=== PATIENT | male | born 1990 | race Caucasian/White ===

== ENCOUNTER → 2020-03-17 | Outpatient (CLI) | payer OTHER ==
[~2020-03-17] MED LIST: AMOX500T2 PO; IBUP80TA PO
--- NOTE | 2020-03-17 13:44 | REPVR ---
PROCEDURE INFORMATION: Exam: CT Maxillofacial Without Contrast, Sinus Exam date and time: 03/17/2020 1:34 PM Age: 30 years old Clinical indication: Condition or disease; Other: Chronic pansiusitis TECHNIQUE: Imaging protocol: CT Maxillofacial without contrast. Focus on the sinuses. Radiation optimization: All CT scans at this facility use at least one of these dose optimization techniques: automated exposure control; mA and/or kV adjustment per patient size (includes targeted exams where dose is matched to clinical indication); or iterative reconstruction. COMPARISON: No relevant prior studies available. FINDINGS: Frontal sinuses: Normal. No air-fluid levels. Ethmoid air cells: Normal. No air-fluid levels. Sphenoid sinuses: Normal. No air-fluid levels. Maxillary sinuses: There is a mucous retention cyst along the floor of the right maxillary sinus. Nasal cavity/Septum: Unremarkable. Orbits: Orbits are normal. Globes are unremarkable. Bones/joints: Unremarkable. Soft tissues: Unremarkable. Dental: There are 2 large left periapical maxillary cysts. IMPRESSION: 1. Large left maxillary periapical cyst extend into the left maxillary sinus. Dental evaluation is recommended. 2. Mild of focal right maxillary sinus mucosal disease. Electronically signed by: Amparo Diaz On 03/17/2020 13:44:52 PM
== END ==
LOC: M RAD 13:11
PROVIDERS: ATTEND Specialist
DX: J32.4 Chronic pansinusitis (principal); K04.8 Radicular cyst

== ENCOUNTER 2020-04-04 06:21 | Day surgery (SDC) | payer OTHER ==
[~2020-04-04] VITALS: Ht 182.9 cm; Wt 70.9 kg
[~2020-04-04 06:21] MED LIST changes: +AMPICILLIN SOD/SULBACTAM SOD 3 GM in D5W MINI-BAG PLUS 100 ML IV ONE; +LR 1,000 ML IV ONE; +dexameTHASONE 4 MG/ML 1ML VIAL (J1100 PER 1MG) IV ONE
[2020-04-04] MEDS ORDERED: fentaNYL 250 MCG/5 ML INJECTION (J3010) As Ordered ONE (07:12)
[2020-04-04] MEDS ORDERED: MIDAZOLAM INJ 2MG/2ML VIAL (J2250 PER 1MG) As Ordered ONE (07:12)
[2020-04-04] MEDS ORDERED: propofoL 200 MG/20 ML VIAL As Ordered ONE (07:15)
[2020-04-04] MEDS ORDERED: dexameTHASONE 4 MG/ML 1ML VIAL (J1100 PER 1MG) As Ordered ONE (07:16)
[2020-04-04] MEDS ORDERED: LIDOCAINE 2% 100MG/5ML SDV (FOR ANES.) As Ordered ONE (07:16)
[2020-04-04] MEDS ORDERED: ROCURONIUM BROMIDE 50 MG/5 ML VIAL As Ordered ONE ×2 (07:16→08:34)
[2020-04-04] MEDS ORDERED: ONDANSETRON 4MG/2ML VIAL As Ordered ONE (07:16)
[2020-04-04] MEDS ORDERED: LIDOCAINE W/EPINEPHRINE 1% 20ML VIAL As Ordered ONE (07:17)
[2020-04-04] MEDS ORDERED: MEPIVACAINE HCL 3 % 1.7 ML DENTAL CARTRIDGE (CARBOCAINE) (J0670) As Ordered ONE (07:17)
[2020-04-04] MEDS ORDERED: METHYLENE BLUE 0.5% (5MG/ML) 10 ML AMP (PROVAYBLUE) As Ordered ONE (07:17)
[2020-04-04] MEDS ORDERED: CHLORHEXIDINE GLUCONATE 0.12 % 15ML UDC (PERIDEX ORAL RINSE) As Ordered ONE (07:17)
[2020-04-04] MEDS ORDERED: LIDOCAINE 2% W/ EPINEPHRINE 1.7 ML DENTAL INJ As Ordered ONE (07:18)
[2020-04-04] MEDS ORDERED: OXYMETAZOLINE 0.05% NASAL SPRAY (AFRIN) As Ordered ONE ×2 (07:18→07:24)
[2020-04-04] MEDS ORDERED: EPINEPHrine 1MG/ML INJ 30ML MD-VIAL As Ordered ONE (07:18)
[2020-04-04] MEDS ORDERED: ACETAMINOPHEN 1000MG 100ML IV BTL (OFIRMEV) (J0131 PER 10MG) As Ordered ONE (07:21)
[2020-04-04] MEDS ORDERED: KETAMINE HCL 200 MG/20 ML VIAL As Ordered ONE (07:58)
[2020-04-04] MEDS ORDERED: GLYCOPYRROLATE INJ 0.2 MG/ML 2 ML VIAL As Ordered ONE (07:59)
[2020-04-04] MEDS ORDERED: SUGAMMADEX SODIUM 500 MG/5 ML VIAL (BRIDION) As Ordered ONE (08:37)
[2020-04-04] MEDS ORDERED: fentaNYL 100 MCG/2 ML INJECTION (J3010) As Ordered ONE (08:39)
[2020-04-04] MEDS ORDERED: KETOROLAC 60MG 2ML VIAL As Ordered ONE (10:04)
[2020-04-04] MEDS ORDERED: LR 1,000 ML IV SCH (11:00)
[2020-04-04] MEDS ORDERED: HYDROMORPHONE HCL 0.5 MG/ 0.5 ML SYRINGE (J1170 PER 1) IV PRN (11:00)
[2020-04-04] MEDS ORDERED: ONDANSETRON 4MG/2ML VIAL IV PRN (11:00)
[2020-04-04] MEDS ORDERED: oxyCODONE 5MG TAB PO PRN (11:00)
[2020-04-04] MEDS: fentaNYL 100 MCG/2 ML INJECTION (J3010) IV PRN ×2 (11:19→11:26)
[2020-04-04] MEDS ORDERED: oxyCODONE 5MG TAB As Ordered ONE ×2 (12:04→12:59)
[2020-04-04] MEDS: oxyCODONE 5MG TAB PO PRN ×2 (12:05→13:05)
[2020-04-04 13:40] VITALS: BP 133/62
--- NOTE | 2020-04-05 09:32 | RO ---
DATE OF OPERATION: 04/04/2020 PREOPERATIVE DIAGNOSES: 1. Failing and terminal dentition. 2. Periapical bony lesion #30. 3. Left maxillary sinus cyst/abscess/mass. POSTOPERATIVE DIAGNOSES: Status post: 1. Failing and terminal dentition. 2. Periapical bony lesion #30. 3. Left maxillary sinus cyst/abscess/mass. PROCEDURES PERFORMED: 1. Extraction of all remaining teeth. 2. Excisional biopsies of bony lesion apical to #30. 3. Excisional biopsy and enucleation of large left maxillary cyst/mass. ANESTHESIA USED: General endotracheal anesthesia via nasal NIKOLE. SURGEONS: Prosper Webber DMD, MD and Luis Miguel Butterfield MD DRAWING CHECKER: INDICATIONS FOR SURGERY: Serge is a pleasant 30-year-old male who was referred to my office for evaluation of recurrent overall infections and abscesses. He has been on numerous and several rounds of oral antibiotics with no resolution of his symptoms. He does complain of almost daily tooth pain, especially in the area of the upper left quadrant. Clinical examination reveals no facial swelling, no lymphadenopathy. The oral cavity has terminal dentition with caries in almost every single tooth that is present. He does have mild vestibular swelling in the upper left quadrant with a draining purulence adjacent to teeth #[address] scan was obtained in my office as well as medical CT scan which was ordered by my ENT colleague Dr. Valdez Hilliard which shows right antral pseudocyst in the right maxilla as well as significant likely odontogenic cyst/infection in left maxillary sinus which is also superimposed with likely left pseudo antral cyst. Lengthy discussion was made with the patient regarding treatment options. He definitely needs to have all of his teeth removed as he also wishes to have so and we discussed the need for cyst/mass enucleation of the left maxillary sinus and its implications and possible complications such as postop maxillary sinusitis, postop chronic oroantral fistula. He was seen by my ENT colleagues as well so all the risks, benefits and alternatives were explained to the patient and the patient elected to proceed with the procedure of removing all the teeth and debriding and enucleating the large left maxillary cyst via intraoral incision. Complete history and physical was performed as well as informed consent which was signed. DESCRIPTION OF PROCEDURE: Any last minute questions were addressed in preop holding. The patient was then taken back to the operating room and laid supine on the operating room table. Ulnar nerve protectors were placed, noninvasive cardiac monitors were applied. At that point the patient underwent general anesthesia once intubated with nasal NIKOLE which was secured to the patients forehead. He was prepped and draped in usual sterile fashion. A time out procedure was performed identifying patient, procedure and precautions. Preoperative antibiotics and steroids were administered in the IV. At this point moist throat pack was inserted in the patients oropharynx followed by the administration at 12 o'clock using 2% Lidocaine with 1:100,000 Epinephrine. The injections of Lidocaine were given as block and local infiltration in the maxilla and mandible. At this point the procedure began with full thickness flap released from the tuberosity distal tooth #16 extending to the sulcus of tooth #16, 15, 14, 13, 12, 11, 10, 9 and 8, the flap was fully reflected and once reflection was made it was pretty obvious and noted that in the areas of #11, 12, 13, 14, 15 and 16 the facial cortices were completely dehisced and the subperiosteal dissection leads directly into the maxillary sinus where an abundant amount of purulent material was encountered and was sent for gram stain, aerobes, anaerobes, culture and sensitivity. Once the purulent material was evacuated by suctioning it a very large unicystic lesion-like was encountered which was shelled out in its entirety from the left maxillary sinus and another unicystic lesion was encountered consistent with the CT scan that we noted preoperatively and that was also shelled out and curetted out in its entirety so we have two specimens that were removed in their entirety, sent out to pathologist for infections. At this point the maxillary sinus was copiously irrigated and suctioned. Any remnant cystic linings were removed from the any of the bony avilez. Inspection of the area reveals that the facial cortices of teeth #11, 12, 13, 14, 15, and 16 are basically missing as well as all of the anterior and posterior maxillary avilez. The zygomatic bone is present in its entirety. However, as I mentioned the left maxillary avilez are completely missing. Therefore, there is a large communication with the maxillary sinus from the oral cavity. At this point Dr. Butterfield performed a left inferior meatus antrostomy where he used a Marleen clamp and performed antrostomy manually. At this point the maxillary sinus was once again irrigated and suctioned and the flap was scored and the periosteum scored and the flap was carried over and closed in tension- free manner in primary closure fashion with interrupted 3-0 Vicryl sutures. Attention was given to teeth #3, 4, 5, 6, 7, 8 and 9 where full thickness flap was released, small amount of buccal bone was removed, #14, 13, 12, 11 areas the teeth were then luxated and delivered with ease. Small alveoplasty was performed to remove any sharp bony areas and undercuts and the sockets were curetted and irrigated. No sinus exposure was noted and flaps were then closed with interrupted 3-0 chromic. Attention was then given to #17 area where a full thickness flap was released, from #17 area to #21 area flap was reflected subperiosteally, small amount of buccal bone was removed and teeth #21, 20, 19, 18, 17 were luxated and removed. Alveoplasty was performed to remove any sharp bony areas and undercuts. All the sockets were curetted and irrigated. Flaps were closed with 3-0 chromic sutures. Routine forceps extraction of #22, 23, 24, 25, 26 was performed. Sockets were curetted and irrigated and full thickness flap was then released from #27, 28, 29, 30, 31 and 32 with small distal release incision, small amount of buccal bone was removed from each tooth area and all the teeth were luxated and delivered. All the sockets were curetted and irrigated. Alveoplasty was performed to remove any sharp bony areas and undercuts and the flap closed with 3-0 chromic sutures. When tooth #30 was removed copious curettage and enucleation and removal and biopsy of the periapical cystic-like lesion was performed and was sent to pathologist for permanent sections. At this point once all the teeth were removed the oral cavity was irrigated and suctioned. Throat pack was removed. The patient was awoken from general anesthesia and taken back to the PACU. COMPLICATIONS: None to mention at the time of surgery. ESTIMATED BLOOD LOSS: 50 mL. DRAINS: No drains were placed. SPECIMENS: Gram stain, aerobe, anaerobe, cultures and sensitivity were sent out from left maxillary sinus purulent material; two specimens were sent out from left maxillary sinus corresponding to the likely pseudo antral cyst and cystic lesion likely odontogenic in nature extending from teeth #11, 12, 13, 14, 15 and 16, sent for permanent sections. SANDYD
== END 2020-04-04 13:50 | disposition home or self-care (01) ==
LOC: M SDC 06:21
PROVIDERS: ATTEND Dentist
DX: K02.9 Dental caries, unspecified (principal); D16.4 Benign neoplasm of bones of skull and face; K09.0 Developmental odontogenic cysts; F12.10 Cannabis abuse, uncomplicated
CPT/HCPCS: 31267; 87070; 87075; 87205; 88300; 88305; D2930; D7310; D9223; J0131; J1100; J1885; J2250; J2405; J3010; Q9968